=== PATIENT | male | born 1970 | race Caucasian/White ===

== ENCOUNTER 2017-07-25 14:35 | Emergency (ER) | payer MEDICAID ==
[~2017-07-25] VITALS: Ht 182.9 cm; Wt 93.0 kg
--- NOTE | 2017-07-25 16:11 | ER.PDOC ---
General Chief Complaint: General Complaint Stated Complaint: HIGH BP,NO SLEEP TRAVEL OUT OF US: No Time seen by MD: 16:07 Source: patient Exam Limitations: no limitations History of Present Illness Initial Comments Wants Quetiapine and BP medications refilled. Past Medical History Medical History: hypertension, other Surgical History: tonsillectomy Social History Smoking: cigarettes, less than 1 pack/day Alcohol Use: none Drug Use: none Review of Systems Constitutional: no symptoms reported Respiratory: no symptoms reported Cardiovascular: no symptoms reported All Other Systems: Reviewed and Negative Physical Exam General Appearance: No Apparent Distress, WD/WN Neck: Non-Tender Respiratory: chest non-tender, lungs clear, normal breath sounds, no respiratory distress CVS: reg rate & rhythm, no murmur, no gallop Gastrointestinal: Normal Bowel Sounds, No Organomegaly, No Pulsatile Mass, Non Tender Back: Normal Inspection Extremities: Normal Range of Motion Neurologic/Psychiatric: quality control operator II-XII NML as Tested Progress Progress While RN was calling patient's pharmacy in [place] to get a list of his medications, He eloped. Course Blood Pressure Systolic: 146 Blood Pressure Diastolic: 115 Blood Pressure Mean: 125 Departure Time of Disposition: 16:09 Disposition: 07 ELOPED Impression: Primary Impression: Hypertension Qualified Codes: I10 - Essential (primary) hypertension Condition: Eloped Referrals: UNDEFINED,PHYSICIAN (PCP) PRIMARY CARE PROVIDER Duration or Time Spent with Pa: 20 mins MOHINI PARRISH MD Jul 25, 2017 16:11
== END 2017-07-25 16:07 | disposition left against medical advice (07) ==
LOC: ER 14:35
DX: I10 Essential (primary) hypertension (principal); F17.210 Nicotine dependence, cigarettes, uncomplicated
CPT/HCPCS: 99281